=== PATIENT | female | born 1960 | race African-American/Black ===

== ENCOUNTER → 2017-04-26 | Outpatient (CLI) | payer MEDICARE ==
[~2017-04-26] MED LIST: AVONEX; AZOR 5/20 MG TA1 TAB PO; COUMADIN PO; COUMADIN2.5 MG PO; DILANTIN PO; FAMOTIDINE PO; KEPPRA750 MG PO; LEVETIRACETAM500 MG PO; LOPRESSOR PO; REBIF SUBQ; TIZANIDINE HCL2 M1 PO; TOPROL XL100 MG PO; TRAMADOL HCL50 M1 PO; VITAMIN D2000 UNI1 PO; WALGREEN'S PHARMACY; [UNRECOGNIZED DRUG - OTHER] SQ
--- NOTE | ~2017-04-26 | US24 ---
[facility] A Service of [facility] & [facility] RADIOLOGY TEXT RESULTS PATIENT: LAKESHA LANDA LOCATION: [facility] : 56 UNIT #: [id number] AGE: [address]: Daniel Piña MD SEX: F ORDER DR: [id number] [place], [place] [address] [id number] O MR#: [id number] Acc #: [id number] NAME: LAKESHA LANDA : 1960 SEX: F STUDY DATE/TIME: 04/26/2017 13:20 UNIT: [facility] ROOM: STUDY DESCRIPTION: US Breast Unilateral Attending Physician: Daniel Piña M.D. Referring Physician: Daniel Piña M.D. Ordering Physician: Daniel Piña M.D. Primary Care Physician: Daniel Piña M.D. MEDICAL IMAGING REPORT This report is preliminary unless electronic signature is present EXAM Targeted ultrasound of the left breast and axilla 04/26/2017 FINDINGS Result text under order number [id number]. Please see this order for result text. Dictated by... Cuauhtemoc Hanson M.D. THIS IS AN ELECTRONICALLY VERIFIED REPORT Cuauhtemoc Hanson M.D. at 04/27/2017 1:42 PM TOM/lenka TD: 04/26/2017 21:02 JOB #: [id number] MEDICAL IMAGING REPORT Page 1 of 1 COPY
--- NOTE | ~2017-04-26 | MY26 ---
[facility] A Service of [facility] & [facility] RADIOLOGY TEXT RESULTS PATIENT: LAKESHA LANDA LOCATION: [facility] : 56 UNIT #: [id number] AGE: [address]: Daniel Piña MD SEX: F ORDER DR: [id number] [facility] [address] [place], [place] [address] [id number] O MR#: [id number] Acc #: [id number] NAME: LAKESHA LANDA. : 1960 SEX: F STUDY DATE/TIME: 04/26/2017 12:55 UNIT: [facility] ROOM: STUDY DESCRIPTION: [facility] W/ CAD BILAT Attending Physician: Daniel Piña M.D. Referring Physician: Daniel Piña M.D. Ordering Physician: Daniel Piña M.D. Primary Care Physician: Daniel Piña M.D. MEDICAL IMAGING REPORT This report is preliminary unless electronic signature is present EXAM Bilateral digital diagnostic mammogram with CAD, targeted left breast ultrasound, 04/26/2017 INDICATIONS 56-year-old female complaining of an "unusual feeling" under her left under arm. No personal or family history of breast cancer. No surgeries. TECHNIQUE CC, MLO and true lateral views were obtained on the left. Standard screening views were obtained on the right. Targeted ultrasound of the area of patient concern was also performed on the left. COMPARISON STUDIES 04/26/2017, 12/08/2015, 04/10/2015, 03/04/2014. FINDINGS Breast parenchyma is predominately fatty replaced. The pattern is unchanged. There are benign intramammary nodes in the left breast that are stable. Benign calcifications are present. No new suspicious nodule, mass or clustered microcalcifications. There is no mammographic correlate for the area of patient concern. The area of patient concern localizes laterally and into the left axilla. Ultrasound was performed of the area of concern. ULTRASOUND: The patient was scanned initially, independently by the technologist and then, rescanned in my presence. Limited physical exam (with patient consent) was performed by me and was negative. Imaging of the area of concern is in the left axilla at about 3 o'clock. Imaging demonstrates multiple benign axillary nodes with fatty truong. These measure between 4 and 10 mm. No suspicious finding otherwise identified. [facility]. [facility] A Service of [facility] RADIOLOGY TEXT RESULTS PATIENT: LAKESHA LANDA LOCATION: [facility] : 56 UNIT #: [id number] AGE: [address]: Daniel Piña MD SEX: F ORDER DR: Imaging findings between mammography and ultrasound are concordant. Absent new or worsening symptoms in either breast, return to an annual screening regimen is recommended. Findings and results were discussed with the patient. IMPRESSION 1. Benign screening mammogram. Benign axillary ultrasound in the area of patient concern. Clinical consideration is to determine additional imaging at this time. See discussion above. BIRADS: 2 Benign Finding. Patients over the age of 40 are entered into a reminder system with target due date for the next mammogram. A result letter will also be sent to the patient. Dictated by... Cuauhtemoc Hanson M.D. THIS IS AN ELECTRONICALLY VERIFIED REPORT Cuauhtemoc Hanson M.D. at 04/27/2017 1:41 PM TOM/marei TD: 04/26/2017 20:57 JOB #: [id number] MEDICAL IMAGING REPORT Page 1 of 1 COPY
== END | disposition home or self-care (01) ==
LOC: CMAM 08:00
DX: N63 Unspecified lump in breast (principal)
CPT/HCPCS: 76641; G0204